=== PATIENT | male | born 1955 | race Two or more races ===

== ENCOUNTER 2017-03-24 11:19 | Emergency (ER) | payer SELFPAY ==
[~2017-03-24] VITALS: Ht 175.3 cm; Wt 72.6 kg
[2017-03-24 11:29] VITALS: BP 147/88
[2017-03-24 12:00] VITALS: BP 147/88
--- NOTE | 2017-03-27 00:16 | Emergency Room Report ---
History of Present Illness General Chief Complaint: Alcohol Intoxication Source: Patient, EMS Present Illness HPI Patient was brought in by paramedics for reports of altered mental status Upon arrival the patient was upset that he was brought to the hospital He reports that he is supposed to be going someone with his daughter and she is likely waiting for him at his house He does admit to drinking alcohol however denies any headache Denies any chest pain short of breath denies any back or flank pain Denies any focal weakness Allergies: Coded Allergies: No Known Allergies (Unverified , 03/24/17) Patient History Past Medical History: see triage record Pertinent Family History: none Reviewed Nursing Documentation: PMH: Agreed, PSxH: Agreed Nursing Documentation-PMH Past Medical History: No Stated History Review of Systems All Other Systems: negative except mentioned in HPI Physical Exam Vital Signs Date Time Temp Pulse Resp B/P Pulse Ox O2 Delivery O2 Flow Rate FiO2 03/24/17 11:10 98.2 82 16 147/88 95 Room Air Sp02 EP Interpretation: reviewed, normal General Appearance: well appearing, no apparent distress Head: normocephalic, atraumatic Eyes: bilateral eye EOMI, bilateral eye PERRL ENT: hearing grossly normal, normal pharynx, TMs + canals normal, uvula midline Neck: full range of motion, supple, no meningismus, no bony tend Respiratory: lungs clear, normal breath sounds, no rhonchi, no respiratory distress, no retraction, no accessory muscle use Cardiovascular #1: normal peripheral pulses, regular rate, rhythm, no edema, no gallop, no JVD, no murmur Gastrointestinal: normal bowel sounds, non tender, soft, no mass, no organomegaly, non-distended, no guarding, no hernia, no pulsatile mass, no rebound Genitourinary: no CVA tenderness Musculoskeletal: normal inspection Neurologic: oriented x3, responsive, watcher lookout tower III-XII nml as tested, motor strength/ tone normal, sensory intact Psychiatric: mood/affect normal Skin: normal color, no rash, warm/dry, palpation normal Lymphatic: normal inspection, no adenopathy Medical Decision Making Diagnostic Impression: Primary Impression: Alcohol abuse ER Course Patient has some is awake alert GCS 15 Is refusing any further workup Given the patient's presentation patient was observed At this time the hospital van is being requested And the patient is to be dispositioned with appropriate transportation Last Vital Signs Date Time Temp Pulse Resp B/P Pulse Ox O2 Delivery O2 Flow Rate FiO2 03/24/17 12:00 98.2 82 16 147/88 99 Room Air Status: improved Disposition: HOME, SELF-CARE Condition: Improved Referrals: NOT CHOSEN IPA/MD,REFERRING (PCP) Additional Instructions: Patient is provided with the discharge instructions notified to follow up with primary doctor in the next 2-3 days otherwise return to the er with any worsening symptoms. Please note that this report is being documented using [employer] technology. This can lead to erroneous entry secondary to incorrect interpretation by the dictating instrument. LISA LOPEZ D.O. March 27, 2017 00:16
== END 2017-03-24 12:00 | disposition home or self-care (01) ==
LOC: EDBD 11:19 → EMR 11:42
DX: F10.10 Alcohol abuse, uncomplicated (principal)
CPT/HCPCS: 99282